=== PATIENT | female | born 1965 | race Caucasian/White ===

== ENCOUNTER 2022-12-05 13:21 | Emergency (ER) | payer OTHER ==
[~2022-12-05] VITALS: Ht 162.6 cm; Wt 90.7 kg
[2022-12-05] MEDS ORDERED: VENTOLIN HFA18 GM INH (13:39)
[2022-12-05] MEDS ORDERED: TRAZODONE HCL50 MG PO (13:40)
[2022-12-05] MEDS ORDERED: METFORMIN HCL500 M2 PO (13:40)
[2022-12-05] MEDS ORDERED: LANTUS100 UNITS/ SUB-Q (13:41)
[2022-12-05 18:15] VITALS: BP 112/60
== END 2022-12-05 18:17 | disposition home or self-care (01) ==
LOC: ED 13:21
DX: J45.901 Unspecified asthma with (acute) exacerbation (principal); E11.9 Type 2 diabetes mellitus without complications; Z91.09 Other allergy status, other than to drugs and biological substances; Z79.4 Long term (current) use of insulin; Z79.84 Long term (current) use of oral hypoglycemic drugs
CPT/HCPCS: 71045; 94640; 99285-25